=== PATIENT | female | born 1995 | race African-American/Black ===

== ENCOUNTER 2016-09-01 17:07 | Outpatient (CLI) | payer MEDICAID ==
[~2016-09-01] VITALS: Ht 162.6 cm; Wt 77.7 kg
[~2016-09-01 17:07] MED LIST: FERROUS SULFATE65 MG PO; IBU-8800 MG PO; LITHIUM CA150 MG/CAP PO; MINIPRESS 1M1 MG/CAP PO; MOTRIN 600600 MG/TAB PO; NORCO 325 MG-51 TAB PO; PERCOCET 325 MG1 TA2 PO; PRENATAL1 TA7 PO; ZITHROMAX 250M250 MG PO; ZITHROMAX Z PA250 MG PO; ZOLOFT 25MG25 MG PO; ZYPREXA 5MG5 MG PO
[2016-09-01 17:15] VITALS: BP 136/86; PULSE 82; TEMP 98.3
[2016-09-01 17:50] VITALS: BP 127/65; PULSE 71
[2016-09-01 18:09] LABS: PH 5 (5-8); SQUAMOUS EPITHELIAL 0-2 /hpf; URINE APPEARANCE Hazy; URINE BACTERIA Rare /hpf; URINE BILIRUBIN Negative (NEGATIVE); URINE BLOOD Negative (NEGATIVE); URINE GLUCOSE Negative (NEGATIVE); URINE KETONE 2+ (NEGATIVE); URINE UROBILINOGEN Negative (NEGATIVE)
[2016-09-01 18:11] LABS: URINE COLOR Yellow
[2016-09-01 18:11] LABS: BASO % 0.2 % (0.0-2.0); EOS % 0.1 % (0-4.0); GRAN # 13.3 (1.4-6.5); GRAN % 85.2 % (42.2-75.2); LYMPH # 1.5 (1.2-3.4); LYMPH % 9.5 % (20.0-51.0); MEAN CELL VOLUME 88 fl (80.0-100.0); MEAN CORPUSCULAR HGB CONC 33 g/dl (33.0-37.0); MEAN PLATELET VOLUME 11.4 fl (7.4-10.4); MONO # 0.7 (0.1-0.6); MONO % 4.2 % (1.7-9.3); PLATELET COUNT 165 K/mm3 (130-400); RED BLOOD COUNT 3.86 M/mm3 (4.10-5.30); REDCELL DISTRIBUTION WIDTH-CV 12.2 % (11.5-14.5); WHITE BLOOD COUNT 15.7 K/mm3 (4.8-10.8)
[2016-09-01 18:12] LABS: HEMOGLOBIN 11.2 g/dl (12.5-16.0); MEAN CORPUSCULAR HEMOGLOBIN 29 pg (27.0-31.0)
[2016-09-01 18:19] LABS: ADJUSTED CALCIUM 9.1 mg/dL (8.4-10.2); BILIRUBIN,TOTAL 0.6 mg/dL (0.0-1.0); CALCIUM 9.1 mg/dL (8.4-10.2); CREATININE, serum 0.46 mg/dL (0.52-1.25); POTASSIUM 4.1 mmol/L (3.4-5.0); TOTAL PROTEIN 7.5 gm/dL (6.4-8.2)
[2016-09-01 18:21] LABS: AMPHETAMINE URINE NEGATIVE; BARBITURATES URINE NEGATIVE; BENZODIAZEPINES URINE NEGATIVE; BUPRENORPHINE URINE NEGATIVE; METHADONE URINE NEGATIVE; OPIATES URINE NEGATIVE; OXYCODONE URINE NEGATIVE; PHENCYCLIDINE URINE NEGATIVE; PROPOXYPHENE URINE NEGATIVE; THC CANNABINOIDS URINE POSITIVE
[2016-09-01 18:30] VITALS: BP 131/79; PULSE 86; TEMP 98.6
== END 2016-09-01 20:35 | disposition home or self-care (01) ==
LOC: LDRO 17:07
PROVIDERS: Obstetrics & Gynecology
DX: O47.03 False labor before 37 completed weeks of gestation, third trimester (principal); O99.333 Smoking (tobacco) complicating pregnancy, third trimester; F17.210 Nicotine dependence, cigarettes, uncomplicated; Z3A.29 29 weeks gestation of pregnancy

== ENCOUNTER 2016-09-12 14:06 | Outpatient (CLI) | payer MEDICAID ==
[~2016-09-12] VITALS: Ht 162.6 cm; Wt 77.1 kg
[2016-09-12 14:22] VITALS: BP 132/80; PULSE 83; TEMP 97.8
[2016-09-12 14:50] VITALS: BP 132/80; PULSE 83; TEMP 97.8
== END 2016-09-12 15:05 | disposition home or self-care (01) ==
LOC: LDRO 14:06
DX: O47.03 False labor before 37 completed weeks of gestation, third trimester (principal); O99.333 Smoking (tobacco) complicating pregnancy, third trimester; Z3A.30 30 weeks gestation of pregnancy; F17.210 Nicotine dependence, cigarettes, uncomplicated

== ENCOUNTER 2016-10-03 09:11 | Outpatient (CLI) | payer MEDICAID ==
[~2016-10-03] VITALS: Ht 162.6 cm; Wt 77.7 kg
[2016-10-03 09:40] VITALS: BP 128/78; PULSE 85; TEMP 8
[2016-10-03 10:00] VITALS: BP 128/78; PULSE 85; TEMP 98
[2016-10-03] MEDS ORDERED: TYLENOL 325MG325 MG PO (10:26)
[2016-10-03 10:38] LABS: BASO % 0.3 % (0.0-2.0); EOS # 0.5 (0.0-0.7); EOS % 4.4 % (0-4.0); GRAN # 8.3 (1.4-6.5); GRAN % 70.8 % (42.2-75.2); LYMPH # 1.9 (1.2-3.4); MEAN CELL VOLUME 89 fl (80.0-100.0); MEAN CORPUSCULAR HGB CONC 32 g/dl (33.0-37.0); MEAN PLATELET VOLUME 11.4 fl (7.4-10.4); MONO # 0.9 (0.1-0.6); MONO % 7.6 % (1.7-9.3); PLATELET COUNT 160 K/mm3 (130-400); RED BLOOD COUNT 3.57 M/mm3 (4.10-5.30); REDCELL DISTRIBUTION WIDTH-CV 11.9 % (11.5-14.5); WHITE BLOOD COUNT 11.7 K/mm3 (4.8-10.8)
[2016-10-03 10:45] LABS: HEMATOCRIT 31.6 % (37.0-47.0); HEMOGLOBIN 10.2 g/dl (12.5-16.0); MEAN CORPUSCULAR HEMOGLOBIN 29 pg (27.0-31.0)
[2016-10-03 10:52] LABS: ADJUSTED CALCIUM 9.2 mg/dL (8.4-10.2); ALBUMIN 3.5 gm/dL (3.5-5.0); BILIRUBIN,TOTAL 0.5 mg/dL (0.0-1.0); CALCIUM 8.8 mg/dL (8.4-10.2); CREATININE, serum 0.45 mg/dL (0.52-1.25); POTASSIUM 3.8 mmol/L (3.4-5.0); TOTAL PROTEIN 6.5 gm/dL (6.4-8.2)
[2016-10-03 11:35] LABS: PH 7 (5-8); SQUAMOUS EPITHELIAL 0-2 /hpf; URINE APPEARANCE Clear; URINE BACTERIA None Seen /hpf; URINE BILIRUBIN Negative (NEGATIVE); URINE BLOOD 1+ (NEGATIVE); URINE COLOR Yellow; URINE GLUCOSE Negative (NEGATIVE); URINE KETONE Negative (NEGATIVE); URINE UROBILINOGEN Negative (NEGATIVE); URINE WBC 0-2 /hpf
[2016-10-03 11:40] LABS: AMPHETAMINE URINE NEGATIVE; BARBITURATES URINE NEGATIVE; BENZODIAZEPINES URINE NEGATIVE; BUPRENORPHINE URINE NEGATIVE; METHADONE URINE NEGATIVE; OPIATES URINE NEGATIVE; OXYCODONE URINE NEGATIVE; PHENCYCLIDINE URINE NEGATIVE; PROPOXYPHENE URINE NEGATIVE; THC CANNABINOIDS URINE POSITIVE
[2016-10-03 12:00] VITALS: BP 117/71; PULSE 70
== END 2016-10-03 14:15 | disposition home or self-care (01) ==
LOC: LDRO 09:11 → LDR 09:20 → LDRO 14:15
PROVIDERS: Obstetrics & Gynecology
DX: O46.8X3 Other antepartum hemorrhage, third trimester (principal); Z3A.33 33 weeks gestation of pregnancy; O99.333 Smoking (tobacco) complicating pregnancy, third trimester; F17.210 Nicotine dependence, cigarettes, uncomplicated
CPT/HCPCS: OP; J7120

== ENCOUNTER 2016-10-22 17:48 | Outpatient (CLI) | payer MEDICAID ==
[~2016-10-22] VITALS: Ht 162.6 cm; Wt 78.6 kg
[~2016-10-22 17:48] MED LIST changes: -FLEXERIL 1010 MG/TAB PO; -IBU600 MG PO; -IRON325 MG PO; -LIDO2%GEL BC; -PEN-VEE K250 MG PO; -PROFERRIN ES12 MG PO; -TUMS500 MG; -VOLTAREN 75 DR75 MG PO
[2016-10-22 17:49] VITALS: BP 132/76; PULSE 89; TEMP 98.3
[2016-10-22 18:00] VITALS: BP 132/76; PULSE 89; TEMP 98.3
[2016-10-22 18:45] VITALS: BP 136/85; PULSE 88; TEMP 98.6
== END 2016-10-22 19:07 | disposition other institution (70) ==
LOC: LDRO 17:48
DX: O47.03 False labor before 37 completed weeks of gestation, third trimester (principal); O99.333 Smoking (tobacco) complicating pregnancy, third trimester; Z3A.36 36 weeks gestation of pregnancy; F17.210 Nicotine dependence, cigarettes, uncomplicated

== ENCOUNTER → 2016-10-22 | Emergency (ER) | payer MEDICAID ==
[~2016-10-22] MED LIST changes: +FLEXERIL 1010 MG/TAB PO; +IBU600 MG PO; +IRON325 MG PO; +LIDO2%GEL BC; +PEN-VEE K250 MG PO; +PROFERRIN ES12 MG PO; +TUMS500 MG; +TYLENOL 325MG325 MG PO; +VOLTAREN 75 DR75 MG PO
== END ==
LOC: COL.ER 19:08
DX: Z53.21 Procedure and treatment not carried out due to patient leaving prior to being seen by health care provider (principal)

== ENCOUNTER 2016-10-26 04:03 | Outpatient (CLI) | payer MEDICAID ==
[~2016-10-26] VITALS: Ht 162.6 cm; Wt 78.6 kg
[2016-10-26 04:13] VITALS: BP 127/83; PULSE 67; TEMP 97.5
[2016-10-26] MEDS ORDERED: PROFERRIN ES12 MG PO (04:20)
[2016-10-26] MEDS ORDERED: IRON325 MG PO (04:27)
[2016-10-26 04:30] VITALS: BP 127/83; PULSE 67; TEMP 97.5
[2016-10-26] MEDS ORDERED: TUMS500 MG (04:47)
[2016-10-26 06:30] VITALS: BP 138/90; PULSE 77
[2016-10-26 06:58] LABS: BASO % 0.4 % (0.0-2.0); EOS # 0.4 (0.0-0.7); EOS % 4.7 % (0-4.0); GRAN # 4.3 (1.4-6.5); GRAN % 57.9 % (42.2-75.2); LYMPH % 27.5 % (20.0-51.0); MEAN CELL VOLUME 88 fl (80.0-100.0); MEAN CORPUSCULAR HGB CONC 32 g/dl (33.0-37.0); MEAN PLATELET VOLUME 11.4 fl (7.4-10.4); MONO # 0.7 (0.1-0.6); MONO % 8.8 % (1.7-9.3); PLATELET COUNT 150 K/mm3 (130-400); RED BLOOD COUNT 3.55 M/mm3 (4.10-5.30); REDCELL DISTRIBUTION WIDTH-CV 12.2 % (11.5-14.5); WHITE BLOOD COUNT 7.4 K/mm3 (4.8-10.8)
[2016-10-26 06:59] LABS: PH 6 (5-8); URINE APPEARANCE Clear; URINE BACTERIA None Seen /hpf; URINE BILIRUBIN Negative (NEGATIVE); URINE BLOOD 1+ (NEGATIVE); URINE COLOR Yellow; URINE GLUCOSE Negative (NEGATIVE); URINE KETONE Negative (NEGATIVE); URINE RBC 0-2 /hpf; URINE UROBILINOGEN Negative (NEGATIVE); URINE WBC 0-2 /hpf
[2016-10-26 07:00] VITALS: BP 119/59; PULSE 85
[2016-10-26 07:02] LABS: ADJUSTED CALCIUM 9.1 mg/dL (8.4-10.2); ALBUMIN 3.5 gm/dL (3.5-5.0); BILIRUBIN,TOTAL 0.4 mg/dL (0.0-1.0); CALCIUM 8.7 mg/dL (8.4-10.2); CREATININE, serum 0.45 mg/dL (0.52-1.25); POTASSIUM 3.8 mmol/L (3.4-5.0); TOTAL PROTEIN 6.5 gm/dL (6.4-8.2)
[2016-10-26 07:12] LABS: AMPHETAMINE URINE NEGATIVE; BARBITURATES URINE NEGATIVE; BENZODIAZEPINES URINE NEGATIVE; BUPRENORPHINE URINE NEGATIVE; METHADONE URINE NEGATIVE; OPIATES URINE NEGATIVE; OXYCODONE URINE NEGATIVE; PHENCYCLIDINE URINE NEGATIVE; PROPOXYPHENE URINE NEGATIVE; THC CANNABINOIDS URINE POSITIVE
[2016-10-26 07:15] LABS: MEAN CORPUSCULAR HEMOGLOBIN 28 pg (27.0-31.0)
[2016-10-26 07:16] LABS: HEMATOCRIT 31.1 % (37.0-47.0)
[2016-10-26 07:30] VITALS: BP 137/81; PULSE 70
== END 2016-10-26 07:51 | disposition home or self-care (01) ==
LOC: LDRO 04:03
PROVIDERS: Obstetrics & Gynecology
DX: O47.03 False labor before 37 completed weeks of gestation, third trimester (principal); O21.0 Mild hyperemesis gravidarum; O99.333 Smoking (tobacco) complicating pregnancy, third trimester; F17.210 Nicotine dependence, cigarettes, uncomplicated; Z3A.36 36 weeks gestation of pregnancy

== ENCOUNTER 2016-11-02 04:42 | Outpatient (CLI) | payer MEDICAID ==
[~2016-11-02] VITALS: Ht 162.6 cm; Wt 79.1 kg
[~2016-11-02 04:42] MED LIST changes: +IRON325 MG PO; +PROFERRIN ES12 MG PO; +TUMS500 MG
[2016-11-02 05:11] VITALS: BP 125/74; PULSE 66; TEMP 98
[2016-11-02] MEDS ORDERED: FLEXERIL 1010 MG/TAB PO (05:28)
== END 2016-11-02 06:15 | disposition home or self-care (01) ==
LOC: LDRO 04:42
DX: O47.1 False labor at or after 37 completed weeks of gestation (principal); O99.333 Smoking (tobacco) complicating pregnancy, third trimester; F17.210 Nicotine dependence, cigarettes, uncomplicated; Z3A.37 37 weeks gestation of pregnancy

== ENCOUNTER 2016-11-05 06:28 | Outpatient (CLI) | payer MEDICAID ==
[~2016-11-05] VITALS: Ht 162.6 cm; Wt 76.8 kg
[~2016-11-05 06:28] MED LIST changes: +FLEXERIL 1010 MG/TAB PO
[2016-11-05 06:43] VITALS: BP 140/92; PULSE 91; TEMP 98.2
[2016-11-05 07:30] VITALS: BP 151/93; PULSE 83
[2016-11-05 08:09] VITALS: BP 138/86; PULSE 70
[2016-11-06] MEDS ORDERED: PERCOCET 325 MG1 TA2 PO (12:28)
[2016-11-06] MEDS ORDERED: IBU600 MG PO (12:28)
== END 2016-11-05 08:15 | disposition home or self-care (01) ==
LOC: LDRO 06:28 → LDR 06:35 → LDRO 08:15
DX: O47.1 False labor at or after 37 completed weeks of gestation (principal); O99.333 Smoking (tobacco) complicating pregnancy, third trimester; F17.210 Nicotine dependence, cigarettes, uncomplicated; Z3A.38 38 weeks gestation of pregnancy
CPT/HCPCS: OP

== ENCOUNTER 2016-11-05 11:37 | Inpatient (IN) | payer MEDICAID ==
[~2016-11-05] VITALS: Ht 162.6 cm; Wt 79.1 kg
[2016-11-05] VITALS (26 sets, daily range): BP systolic 122–158; BP diastolic 59–92; PULSE 71–114; TEMP 97.8–98.7
[2016-11-05 12:32] LABS: BASO % 0.3 % (0.0-2.0); EOS % 0.3 % (0-4.0); GRAN # 9.2 (1.4-6.5); GRAN % 76.8 % (42.2-75.2); HEMATOCRIT 32.3 % (37.0-47.0); HEMOGLOBIN 10.5 g/dl (12.5-16.0); LYMPH # 1.4 (1.2-3.4); LYMPH % 11.3 % (20.0-51.0); MEAN CELL VOLUME 86 fl (80.0-100.0); MEAN CORPUSCULAR HEMOGLOBIN 28 pg (27.0-31.0); MEAN CORPUSCULAR HGB CONC 33 g/dl (33.0-37.0); MEAN PLATELET VOLUME 11.3 fl (7.4-10.4); MONO # 1.3 (0.1-0.6); MONO % 10.5 % (1.7-9.3); PLATELET COUNT 157 K/mm3 (130-400); RED BLOOD COUNT 3.75 M/mm3 (4.10-5.30)
[2016-11-05 12:46] LABS: AMPHETAMINE URINE NEGATIVE; BARBITURATES URINE NEGATIVE; BENZODIAZEPINES URINE NEGATIVE; BUPRENORPHINE URINE NEGATIVE; METHADONE URINE NEGATIVE; OPIATES URINE NEGATIVE; OXYCODONE URINE NEGATIVE; PHENCYCLIDINE URINE NEGATIVE; PROPOXYPHENE URINE NEGATIVE; THC CANNABINOIDS URINE POSITIVE
[2016-11-06 05:19] VITALS: BP 144/92; PULSE 89; TEMP 98.7
[2016-11-06 07:00] VITALS: BP 153/87; PULSE 65; TEMP 97.6
[2016-11-06 09:16] LABS: HEMATOCRIT 33.5 % (37.0-47.0); HEMOGLOBIN 10.7 g/dl (12.5-16.0)
[2016-11-06] MEDS ORDERED: IBU600 MG PO (12:28)
[2016-11-06] MEDS ORDERED: PERCOCET 325 MG1 TA2 PO (12:28)
[2016-11-06 17:00] VITALS: BP 138/85; PULSE 90; TEMP 97.3
[2016-11-06 20:00] VITALS: BP 154/94; PULSE 123; TEMP 98.4
[2016-11-07 07:00] VITALS: BP 144/91; PULSE 80; TEMP 98.4
[2016-11-07 09:30] VITALS: BP 126/64; PULSE 85
== END 2016-11-07 14:40 | disposition home or self-care (01) | DRG 774 ==
LOC: LDRO 11:37 → LDR 11:50 → OB 11:50
PROVIDERS: Obstetrics & Gynecology
PROC: 10E0XZZ Delivery of Products of Conception, External Approach (ICD-10-PCS; principal; 2016-11-05)
DX: O99.344 Other mental disorders complicating childbirth (principal); O98.311 Other infections with a predominantly sexual mode of transmission complicating pregnancy, first trimester; O99.324 Drug use complicating childbirth; F31.9 Bipolar disorder, unspecified; A56.02 Chlamydial vulvovaginitis; F12.90 Cannabis use, unspecified, uncomplicated; Z3A.38 38 weeks gestation of pregnancy; Z37.0 Single live birth
CPT/HCPCS: J2590; J7120

== ENCOUNTER 2017-01-31 04:55 | Emergency (ER) | payer MEDICAID ==
[~2017-01-31] VITALS: Ht 162.6 cm; Wt 68.2 kg
[~2017-01-31 04:55] MED LIST changes: +IBU600 MG PO
[2017-01-31 04:58] VITALS: BP 128/72; PULSE 78; TEMP 97.8
[2017-01-31] MEDS ORDERED: PEN-VEE K250 MG PO (05:20)
[2017-01-31] MEDS ORDERED: VOLTAREN 75 DR75 MG PO (05:20)
== END 2017-01-31 05:38 | disposition home or self-care (01) ==
LOC: COL.ER 04:55
DX: K08.89 Other specified disorders of teeth and supporting structures (principal); K03.81 Cracked tooth; K01.0 Embedded teeth

== ENCOUNTER 2017-02-05 10:36 | Emergency (ER) | payer MEDICAID ==
[~2017-02-05] VITALS: Ht 162.6 cm; Wt 68.2 kg
[~2017-02-05 10:36] MED LIST changes: +PEN-VEE K250 MG PO; +VOLTAREN 75 DR75 MG PO
[2017-02-05 10:43] VITALS: BP 149/74; PULSE 63; TEMP 98.7
[2017-02-05] MEDS ORDERED: LIDO2%GEL BC (12:04)
== END 2017-02-05 12:14 | disposition home or self-care (01) ==
LOC: COL.ER 10:36
DX: K08.89 Other specified disorders of teeth and supporting structures (principal); F17.210 Nicotine dependence, cigarettes, uncomplicated

== ENCOUNTER 2017-03-09 10:54 | Emergency (ER) | payer MEDICAID ==
[~2017-03-09] VITALS: Ht 165.1 cm; Wt 63.6 kg
[~2017-03-09 10:54] MED LIST changes: +LIDO2%GEL BC
[2017-03-09 10:58] VITALS: BP 121/88; PULSE 85; TEMP 98.6
[2017-03-09 11:49] LABS: BASO # 0.1 (0.0-0.2); BASO % 1.1 % (0.0-2.0); EOS # 0.1 (0.0-0.7); EOS % 1.7 % (0-4.0); GRAN # 2.3 (1.4-6.5); GRAN % 48.1 % (42.2-75.2); HEMATOCRIT 39.6 % (37.0-47.0); HEMOGLOBIN 12.7 g/dl (12.5-16.0); LYMPH # 1.8 (1.2-3.4); LYMPH % 38.5 % (20.0-51.0); MEAN CELL VOLUME 85 fl (80.0-100.0); MEAN CORPUSCULAR HEMOGLOBIN 27 pg (27.0-31.0); MEAN CORPUSCULAR HGB CONC 32 g/dl (33.0-37.0); MEAN PLATELET VOLUME 11.5 fl (7.4-10.4); MONO # 0.5 (0.1-0.6); MONO % 10.4 % (1.7-9.3); PLATELET COUNT 173 K/mm3 (130-400); RED BLOOD COUNT 4.64 M/mm3 (4.10-5.30); REDCELL DISTRIBUTION WIDTH-CV 12.8 % (11.5-14.5); WHITE BLOOD COUNT 4.7 K/mm3 (4.8-10.8)
[2017-03-09 11:59] LABS: ANION GAP 11 mmol/L (7-16); BLOOD UREA NITROGEN 11 mg/dL (7-17); CALCIUM 9.4 mg/dL (8.4-10.2); CARBON DIOXIDE 24 mmol/L (22-30); CHLORIDE 107 mmol/L (98-107); CREATININE, serum 0.68 mg/dL (0.52-1.25); GLUCOSE 80 mg/dL (74-106); POTASSIUM 3.9 mmol/L (3.4-5.0); SODIUM 142 mmol/L (137-145)
[2017-03-09 12:01] LABS: ACETAMINOPHEN < 10 ug/mL (10-30); SALICYLATE < 1.0 mg/dL
[2017-03-09 12:08] LABS: AMPHETAMINE URINE NEGATIVE; BARBITURATES URINE NEGATIVE; BENZODIAZEPINES URINE NEGATIVE; BUPRENORPHINE URINE NEGATIVE; METHADONE URINE NEGATIVE; OPIATES URINE NEGATIVE; OXYCODONE URINE NEGATIVE; PHENCYCLIDINE URINE NEGATIVE; PROPOXYPHENE URINE NEGATIVE; THC CANNABINOIDS URINE POSITIVE
== END 2017-03-09 14:51 | disposition home or self-care (01) ==
LOC: COL.ER 10:54
PROVIDERS: Physician Assistant
DX: R44.0 Auditory hallucinations (principal); F31.9 Bipolar disorder, unspecified; T43.596A Underdosing of other antipsychotics and neuroleptics, initial encounter; Z91.14 Patient's other noncompliance with medication regimen

== ENCOUNTER 2018-02-14 17:38 | Emergency (ER) | payer MEDICAID ==
[~2018-02-14] VITALS: Ht 165.1 cm; Wt 59.1 kg
[2018-02-14] MEDS ORDERED: AMOXICILLIN 50500 MG PO (18:57)
[2018-02-14] MEDS ORDERED: PHENERGAN 25 TA25 MG PO (18:57)
[2018-02-14 19:09] VITALS: BP 105/70; PULSE 103; TEMP 98.3
== END 2018-02-14 19:10 | disposition home or self-care (01) ==
LOC: COL.ER 17:38
DX: J03.90 Acute tonsillitis, unspecified (principal)
CPT/HCPCS: J1100; J1885

== ENCOUNTER 2018-03-10 17:06 | Emergency (ER) | payer MEDICAID ==
[~2018-03-10] VITALS: Ht 162.6 cm; Wt 59.1 kg
[~2018-03-10 17:06] MED LIST changes: +AMOXICILLIN 50500 MG PO; +PHENERGAN 25 TA25 MG PO
[2018-03-10 17:17] VITALS: BP 131/77; TEMP 98.4
[2018-03-10 19:20] VITALS: PULSE 77
== END 2018-03-10 19:20 | disposition home or self-care (01) ==
LOC: COL.ER 17:06
DX: S50.02XA Contusion of left elbow, initial encounter (principal); S60.212A Contusion of left wrist, initial encounter; S70.02XA Contusion of left hip, initial encounter; S70.12XA Contusion of left thigh, initial encounter; F17.210 Nicotine dependence, cigarettes, uncomplicated; W10.8XXA Fall (on) (from) other stairs and steps, initial encounter; Y92.009 Unspecified place in unspecified non-institutional (private) residence as the place of occurrence of the external cause
CPT/HCPCS: J1885

== ENCOUNTER 2018-05-04 16:47 | Emergency (ER) | payer MEDICAID ==
[~2018-05-04] VITALS: Ht 162.6 cm; Wt 60.9 kg
[2018-05-04 16:52] VITALS: BP 112/81; TEMP 97.9
[2018-05-04 18:56] VITALS: PULSE 96
== END 2018-05-04 19:04 | disposition home or self-care (01) ==
LOC: COL.ER 16:47
DX: J06.9 Acute upper respiratory infection, unspecified (principal); J45.909 Unspecified asthma, uncomplicated; F17.210 Nicotine dependence, cigarettes, uncomplicated; F12.90 Cannabis use, unspecified, uncomplicated

== ENCOUNTER 2018-07-08 17:52 | Emergency (ER) | payer MEDICAID ==
[~2018-07-08] VITALS: Ht 162.6 cm; Wt 56.4 kg
[2018-07-08 17:56] VITALS: BP 139/82; TEMP 100.3
[2018-07-08 18:54] VITALS: PULSE 98
== END 2018-07-08 18:55 | disposition home or self-care (01) ==
LOC: COL.ER 17:52
DX: J02.9 Acute pharyngitis, unspecified (principal); F17.210 Nicotine dependence, cigarettes, uncomplicated

== ENCOUNTER 2018-07-18 08:34 | Emergency (ER) | payer MEDICAID ==
[~2018-07-18] VITALS: Ht 154.9 cm; Wt 59.1 kg
[2018-07-18 08:36] VITALS: BP 129/82; TEMP 98.2
[2018-07-18 08:45] LABS: COLLECTION METHOD CLEAN CATCH
[2018-07-18 08:53] LABS: MUCOUS Present /lpf; PH 6 (5-8); URINE APPEARANCE Clear; URINE BACTERIA None Seen /hpf; URINE BILIRUBIN Negative (NEGATIVE); URINE BLOOD 3+ (NEGATIVE); URINE COLOR Yellow; URINE GLUCOSE Negative (NEGATIVE); URINE KETONE Negative (NEGATIVE); URINE LEUKOCYTE ESTERASE Negative (NEGATIVE); URINE NITRATE Negative (NEGATIVE); URINE PROTEIN(semi-quant) 1+ (NEGATIVE); URINE UROBILINOGEN Negative (NEGATIVE)
[2018-07-18 09:21] VITALS: PULSE 78
== END 2018-07-18 09:22 | disposition home or self-care (01) ==
LOC: COL.ER 08:34
PROVIDERS: Family Medicine
DX: N93.8 Other specified abnormal uterine and vaginal bleeding (principal)

== ENCOUNTER 2018-08-11 05:02 | Emergency (ER) | payer MEDICAID ==
[~2018-08-11] VITALS: Ht 162.6 cm; Wt 61.1 kg
[2018-08-11 05:06] VITALS: BP 130/82; TEMP 98.9
[2018-08-11] MEDS ORDERED: AMOXICILLIN 50500 MG PO (05:33)
[2018-08-11] MEDS ORDERED: NORCO 325 MG-51 TAB PO (05:43)
[2018-08-11 05:55] VITALS: PULSE 70
== END 2018-08-11 05:56 | disposition home or self-care (01) ==
LOC: COL.ER 05:02
DX: K02.9 Dental caries, unspecified (principal); F12.90 Cannabis use, unspecified, uncomplicated

== ENCOUNTER 2018-10-13 06:48 | Emergency (ER) | payer MEDICAID ==
[~2018-10-13] VITALS: Ht 162.6 cm; Wt 61.4 kg
[2018-10-13 06:52] VITALS: BP 127/84; TEMP 98.8
[2018-10-13] MEDS ORDERED: FLEXERIL 1010 MG/TAB PO ×2 (07:11→07:25)
[2018-10-13 07:26] VITALS: PULSE 82
== END 2018-10-13 07:40 | disposition home or self-care (01) ==
LOC: COL.ER 06:48
DX: M54.5 Low back pain (principal); F17.210 Nicotine dependence, cigarettes, uncomplicated
CPT/HCPCS: J1885

== ENCOUNTER → 2018-10-16 | Outpatient (CLI) | payer MEDICAID | LOC: COL.LAB 10:46 | DX: R11.10 Vomiting, unspecified (principal); R10.9 Unspecified abdominal pain ==

== ENCOUNTER → 2018-11-13 | Outpatient (CLI) | payer MEDICAID | LOC: ZCOL.LAB 17:22 | DX: Z20.2 Contact with and (suspected) exposure to infections with a predominantly sexual mode of transmission (principal); N91.2 Amenorrhea, unspecified ==

== ENCOUNTER 2018-12-22 19:13 | Emergency (ER) | payer MEDICAID ==
[~2018-12-22] VITALS: Ht 162.6 cm; Wt 59.1 kg
[2018-12-22 20:14] LABS: BASO % 0.3 % (0.0-2.0); EOS # 0.1 (0.0-0.7); EOS % 0.6 % (0-4.0); GRAN # 5.9 (1.4-6.5); GRAN % 68.3 % (42.2-75.2); HEMATOCRIT 39.1 % (37.0-47.0); HEMOGLOBIN 12.2 g/dl (12.5-16.0); LYMPH # 1.4 (1.2-3.4); LYMPH % 15.8 % (20.0-51.0); MEAN CELL VOLUME 88 fl (80.0-100.0); MEAN CORPUSCULAR HEMOGLOBIN 28 pg (27.0-31.0); MEAN CORPUSCULAR HGB CONC 31 g/dl (33.0-37.0); MEAN PLATELET VOLUME 11.3 fl (7.4-10.4); MONO # 1.3 (0.1-0.6); MONO % 14.7 % (1.7-9.3); PLATELET COUNT 188 K/mm3 (130-400); RED BLOOD COUNT 4.43 M/mm3 (4.10-5.30); REDCELL DISTRIBUTION WIDTH-CV 12.9 % (11.5-14.5)
[2018-12-22 20:29] LABS: ALANINE AMINOTRANSFERASE 8 U/L (9-52); ALBUMIN 4.4 gm/dL (3.5-5.0); ALKALINE PHOSPHATASE 72 U/L (50-136); ANION GAP 9 mmol/L (7-16); AST,SGOT 36 U/L (15-37); BILIRUBIN,TOTAL 0.5 mg/dL (0.0-1.0); BLOOD UREA NITROGEN 8 mg/dL (7-17); C-REACTIVE PROTEIN 2.9 mg/dL (0.0-0.9); CALCIUM 9.5 mg/dL (8.4-10.2); CARBON DIOXIDE 26 mmol/L (22-30); CHLORIDE 105 mmol/L (98-107); CREATINE KINASE 79 U/L (30-135); CREATININE, serum 0.64 (0.52-1.25); GLUCOSE 86 mg/dL (74-106); POTASSIUM 3.8 mmol/L (3.4-5.0); SODIUM 140 mmol/L (137-145); TOTAL PROTEIN 7.9 gm/dL (6.4-8.2)
[2018-12-22 20:32] LABS: ALCOHOL(ethanol),MEDICAL < 10 mg/dL
[2018-12-22 20:38] LABS: TROPONIN-I < 0.012 ng/mL (0.000-0.035)
[2018-12-22 21:37] LABS: COLLECTION METHOD CLEAN CATCH
[2018-12-22 21:49] LABS: TRICYCLIC ANTIDEPRESS URINE NEGATIVE
[2018-12-22 22:04] LABS: MUCOUS Present /lpf; PH 6 (5-8); URINE APPEARANCE Clear; URINE BACTERIA None Seen /hpf; URINE BILIRUBIN Negative (NEGATIVE); URINE BLOOD Negative (NEGATIVE); URINE COLOR Yellow; URINE GLUCOSE Negative (NEGATIVE); URINE KETONE Negative (NEGATIVE); URINE LEUKOCYTE ESTERASE Negative (NEGATIVE); URINE NITRATE Negative (NEGATIVE); URINE PROTEIN(semi-quant) Negative (NEGATIVE); URINE RBC 0-2 /hpf
[2018-12-23 03:15] VITALS: BP 114/91; PULSE 106
[2018-12-23 03:16] VITALS: TEMP 100.7
[2018-12-23] MEDS ORDERED: AMOXICILLIN 50500 MG PO (03:27)
== END 2018-12-23 03:40 | disposition home or self-care (01) ==
LOC: COL.ER 19:13
PROVIDERS: Physician Assistant
DX: R07.89 Other chest pain (principal); J02.9 Acute pharyngitis, unspecified; F14.10 Cocaine abuse, uncomplicated
CPT/HCPCS: J7030

== ENCOUNTER 2018-12-26 23:33 | Emergency (ER) | payer MEDICAID ==
[~2018-12-26] VITALS: Ht 162.6 cm; Wt 55.9 kg
[2018-12-26] MEDS ORDERED: AMOXICILLIN 50500 MG PO (23:39)
[2018-12-27 00:12] LABS: BASO % 0.2 % (0.0-2.0); EOS % 0.5 % (0-4.0); GRAN # 6.5 (1.4-6.5); GRAN % 74.5 % (42.2-75.2); HEMOGLOBIN 11.5 g/dl (12.5-16.0); LYMPH # 1.3 (1.2-3.4); LYMPH % 14.9 % (20.0-51.0); MEAN CELL VOLUME 87 fl (80.0-100.0); MEAN CORPUSCULAR HEMOGLOBIN 27 pg (27.0-31.0); MEAN CORPUSCULAR HGB CONC 32 g/dl (33.0-37.0); MEAN PLATELET VOLUME 11.7 fl (7.4-10.4); MONO # 0.9 (0.1-0.6); MONO % 9.7 % (1.7-9.3); PLATELET COUNT 200 K/mm3 (130-400); REDCELL DISTRIBUTION WIDTH-CV 12.6 % (11.5-14.5)
[2018-12-27 00:17] LABS: ALBUMIN 4.1 gm/dL (3.5-5.0); BILIRUBIN,TOTAL 0.3 mg/dL (0.0-1.0); CALCIUM 9.1 mg/dL (8.4-10.2); CREATININE, serum 0.6 (0.52-1.25); POTASSIUM 3.7 mmol/L (3.4-5.0); TOTAL PROTEIN 7.5 gm/dL (6.4-8.2)
[2018-12-27 00:26] LABS: HEMATOCRIT 36.4 % (37.0-47.0)
[2018-12-27 00:55] VITALS: BP 118/80; PULSE 91; TEMP 98.7
== END 2018-12-27 00:56 | disposition home or self-care (01) ==
LOC: COL.ER 23:33
PROVIDERS: Emergency Medicine
DX: B00.2 Herpesviral gingivostomatitis and pharyngotonsillitis (principal); F17.210 Nicotine dependence, cigarettes, uncomplicated
CPT/HCPCS: J1885; J7030; Q9967

== ENCOUNTER → 2019-02-18 | Outpatient (CLI) | payer MEDICAID | LOC: ZCOL.LAB 16:33 | DX: Z72.51 High risk heterosexual behavior (principal) ==

== ENCOUNTER → 2019-03-04 | Outpatient (CLI) | payer MEDICAID ==
[2019-03-04 18:38] LABS: HIV 1/2 Antibodies Non-Reactive; HIV-1p24 Antigen Non-Reactive
[2019-03-08 01:05] LABS: HERPES SIMPLEX VIRUS 1 IGG XXX; HERPES SIMPLEX VIRUS 2 IGG XXX
== END ==
LOC: ZCOL.LAB 16:17
PROVIDERS: Family Medicine
DX: Z11.4 Encounter for screening for human immunodeficiency virus [HIV] (principal); Z11.3 Encounter for screening for infections with a predominantly sexual mode of transmission

== ENCOUNTER 2019-03-30 09:04 | Emergency (ER) | payer MEDICAID ==
[~2019-03-30] VITALS: Ht 165.1 cm; Wt 59.1 kg
[2019-03-30 09:20] VITALS: BP 121/70; TEMP 97.9
[2019-03-30] MEDS ORDERED: AMOXICILLIN 8751 TAB PO (09:57)
[2019-03-30 10:20] VITALS: PULSE 82
== END 2019-03-30 10:21 | disposition home or self-care (01) ==
LOC: COL.ER 09:04
DX: S02.5XXA Fracture of tooth (traumatic), initial encounter for closed fracture (principal); K04.7 Periapical abscess without sinus; F17.210 Nicotine dependence, cigarettes, uncomplicated; F12.90 Cannabis use, unspecified, uncomplicated; X58.XXXA Exposure to other specified factors, initial encounter
CPT/HCPCS: J1885

== ENCOUNTER 2019-03-31 07:13 | Emergency (ER) | payer MEDICAID ==
[~2019-03-31] VITALS: Ht 152.4 cm; Wt 54.5 kg
[~2019-03-31 07:13] MED LIST changes: +AMOXICILLIN 8751 TAB PO
[2019-03-31 08:25] VITALS: BP 145/65; PULSE 78; TEMP 97.9
== END 2019-03-31 08:25 | disposition home or self-care (01) ==
LOC: COL.ER 07:13
DX: K02.9 Dental caries, unspecified (principal); F17.210 Nicotine dependence, cigarettes, uncomplicated
CPT/HCPCS: J1885

== ENCOUNTER 2019-05-15 11:32 | Emergency (ER) | payer MEDICAID ==
[~2019-05-15] VITALS: Ht 152.4 cm; Wt 61.4 kg
[2019-05-15 11:55] LABS: BASO # 0.1 (0.0-0.2); BASO % 0.6 % (0.0-2.0); EOS # 0.3 (0.0-0.7); EOS % 3.7 % (0-4.0); GRAN # 6.6 (1.4-6.5); HEMOGLOBIN 10.9 g/dl (12.5-16.0); LYMPH # 0.9 (1.2-3.4); LYMPH % 10.5 % (20.0-51.0); MEAN CELL VOLUME 86 fl (80.0-100.0); MEAN CORPUSCULAR HEMOGLOBIN 27 pg (27.0-31.0); MEAN CORPUSCULAR HGB CONC 31 g/dl (33.0-37.0); MEAN PLATELET VOLUME 11.4 fl (7.4-10.4); MONO # 0.8 (0.1-0.6); PLATELET COUNT 168 K/mm3 (130-400); RED BLOOD COUNT 4.08 M/mm3 (4.10-5.30); REDCELL DISTRIBUTION WIDTH-CV 13.6 % (11.5-14.5)
[2019-05-15 12:01] VITALS: TEMP 98.3
[2019-05-15 12:03] LABS: ALANINE AMINOTRANSFERASE 10 U/L (9-52); ALBUMIN 4.2 gm/dL (3.5-5.0); ALKALINE PHOSPHATASE 60 U/L (50-136); ANION GAP 6 mmol/L (7-16); AST,SGOT 19 U/L (15-37); BILIRUBIN,TOTAL 0.5 mg/dL (0.0-1.0); BLOOD UREA NITROGEN 7 mg/dL (7-17); CARBON DIOXIDE 25 mmol/L (22-30); CHLORIDE 107 mmol/L (98-107); CREATININE, serum 0.55 (0.52-1.25); GLUCOSE 79 mg/dL (74-106); HEMATOCRIT 34.9 % (37.0-47.0); POTASSIUM 4.1 mmol/L (3.4-5.0); SODIUM 139 mmol/L (137-145); TOTAL PROTEIN 6.9 gm/dL (6.4-8.2)
[2019-05-15 12:05] LABS: INR 1.1 (0.8-3.0); PROTHROMBIN TIME 12.7 SECONDS (9.7-12.8)
[2019-05-15 12:11] LABS: D-DIMER < 200.00 ng/mLDDu (200-230)
[2019-05-15 12:18] LABS: TROPONIN-I < 0.012 ng/mL (0.000-0.035)
[2019-05-15] MEDS ORDERED: DOXYCYCLINE 10100 MG PO (12:44)
[2019-05-15] MEDS ORDERED: PREDNISONE20 MG PO (12:44)
[2019-05-15 13:15] VITALS: BP 112/75; PULSE 72
== END 2019-05-15 13:33 | disposition home or self-care (01) ==
LOC: COL.ER 11:32
PROVIDERS: Emergency Medicine
DX: R07.9 Chest pain, unspecified (principal)
CPT/HCPCS: J1885

== ENCOUNTER 2020-05-12 12:04 | Emergency (ER) | payer MEDICAID ==
[~2020-05-12] VITALS: Ht 162.6 cm; Wt 58.2 kg
[~2020-05-12 12:04] MED LIST changes: +DOXYCYCLINE 10100 MG PO; +PREDNISONE20 MG PO
[2020-05-12 13:00] VITALS: TEMP 98.4
[2020-05-12] MEDS ORDERED: ZOLOFT 50MG50 MG PO (13:17)
[2020-05-12] MEDS ORDERED: ABILIFY 10MG TA10 MG PO (13:17)
[2020-05-12 14:08] VITALS: BP 105/79; PULSE 80
[2020-05-13] MEDS ORDERED: PROAIR HFA0.09 MG/AC IH (09:12)
== END 2020-05-12 14:07 | disposition home or self-care (01) ==
LOC: COL.ER 12:04
DX: J06.9 Acute upper respiratory infection, unspecified (principal); Z20.828 Contact with and (suspected) exposure to other viral communicable diseases

== ENCOUNTER 2020-05-13 07:57 | Emergency (ER) | payer MEDICAID ==
[~2020-05-13] VITALS: Ht 162.6 cm; Wt 58.2 kg
[~2020-05-13 07:57] MED LIST changes: +ABILIFY 10MG TA10 MG PO; +ZOLOFT 50MG50 MG PO
[2020-05-13 08:10] VITALS: BP 116/68; PULSE 110; TEMP 99.1
[2020-05-13] MEDS ORDERED: PROAIR HFA0.09 MG/AC IH (09:12)
== END 2020-05-13 09:22 | disposition home or self-care (01) ==
LOC: COL.ER 07:57
DX: Z20.828 Contact with and (suspected) exposure to other viral communicable diseases (principal); F31.9 Bipolar disorder, unspecified; F17.210 Nicotine dependence, cigarettes, uncomplicated

== ENCOUNTER 2021-03-27 01:07 | Emergency (ER) | payer MEDICAID ==
[~2021-03-27] VITALS: Ht 162.6 cm; Wt 58.6 kg
[~2021-03-27 01:07] MED LIST changes: +PROAIR HFA0.09 MG/AC IH
[2021-03-27 02:05] VITALS: BP 121/83; PULSE 65; TEMP 97.9
[2021-03-27] MEDS ORDERED: AMOXICILLIN 8751 TAB PO (02:50)
== END 2021-03-27 02:53 | disposition home or self-care (01) ==
LOC: COL.ER 01:07
DX: K03.81 Cracked tooth (principal); K02.9 Dental caries, unspecified; F17.210 Nicotine dependence, cigarettes, uncomplicated

== ENCOUNTER 2021-04-23 19:27 | Emergency (ER) | payer MEDICAID ==
[~2021-04-23] VITALS: Ht 162.6 cm; Wt 63.2 kg
[2021-04-23] MEDS ORDERED: PERCOCET 325 MG1 TA2 PO (20:23)
[2021-04-23] MEDS ORDERED: AMOXICILLIN 50500 MG PO (20:23)
[2021-04-23 20:40] VITALS: BP 138/64; PULSE 65; TEMP 99.1
== END 2021-04-23 20:40 | disposition home or self-care (01) ==
LOC: COL.ER 19:27
DX: K04.7 Periapical abscess without sinus (principal); K02.9 Dental caries, unspecified; K03.81 Cracked tooth
CPT/HCPCS: J0696

== ENCOUNTER 2021-04-27 01:45 | Emergency (ER) | payer MEDICAID ==
[~2021-04-27] VITALS: Ht 165.1 cm; Wt 63.2 kg
[2021-04-27 02:07] VITALS: BP 135/77; PULSE 115; TEMP 98.3
== END 2021-04-27 02:57 | disposition home or self-care (01) ==
LOC: COL.ER 01:45
DX: U07.1 COVID-19 (principal)

== ENCOUNTER 2024-05-20 09:42 | Outpatient (CLI) | payer MEDICAID ==
[~2024-05-20] VITALS: Ht 162.6 cm; Wt 73.6 kg
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
[~2024-05-20 09:42] MED LIST changes: +PRENATAL
[2024-05-20] MEDS ORDERED: LR 1,000 ML IV PRN (09:45)
[2024-05-20 10:10] VITALS: BP 125/71; PULSE 82; TEMP 97.8
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
[2024-05-20 10:40] VITALS: BP 135/82; PULSE 81
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
[2024-05-20 11:10] VITALS: BP 131/76; PULSE 79
--- NOTE | 2024-05-20 11:10 | NUR ---
ALL DC PAPERWORK AND INSTRUCTIONS REVIEWED AND UNDERSTOOD. PT AMBULATORY FROM UNIT WITH FRIEND IN STABLE CONDITION. SEE PHYSICIAN NOTIFICATION.
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
== END 2024-05-20 11:10 | disposition home or self-care (01) ==
LOC: LDRO 09:42 → LDR 09:42 → LDRO 11:10
DX: O9A.212 Injury, poisoning and certain other consequences of external causes complicating pregnancy, second trimester (principal); O99.612 Diseases of the digestive system complicating pregnancy, second trimester; Z3A.27 27 weeks gestation of pregnancy
CPT/HCPCS: OP